=== PATIENT | male | born 1965 | race Caucasian/White ===

== ENCOUNTER 2018-09-06 13:28 | Outpatient (CLI) | payer OTHER ==
--- NOTE | 2018-09-06 16:11 | RAD ---
THREE VIEWS OF THE LUMBOSACRAL SPINE: COMPARISON: 05/31/2018. HISTORY: Low back pain for years. FINDINGS: Lateral views of the lumbosacral spine were performed in neutral, flexion, and extension. The verteb ral bodies demonstrate normal height without fracture or subluxation. The intervertebral disks are n arrowed at L4-5 and L5-S1. Alignment is unchanged with flexion and extension. Small osteophytes are seen throughout the lumbar spine. IMPRESSION: Degenerative changes of the lumbar spine with unchanged alignment with bending. POS: PRETTY
--- NOTE | 2018-09-06 17:40 | MRI ---
MRI LUMBAR SPINE WITHOUT CONTRAST: Date: 09/06/18 HISTORY: M54.16 lumbar radiculopathy. COMPARISON: Radiograph same date. FINDINGS: No hydronephrosis. Aortic contour is nonaneurysmal. No retroperitoneal adenopathy. Symmetric bilatera l paraspinal muscle bulk. No marrow infiltrative process. Modic Type I end plate changes L4-5 and L5-S1. There is a superior en d plate Schmorl's node at L4-5. Conus medullaris terminates near the mid L1 vertebral body. No marrow infiltrative process. No hydronephrosis. Aortic contour is normal. Levels are as follows: L1-2: Normal disc. Mild facet arthrosis. No neural foraminal or spinal canal narrowing. L2-3: There is moderate disc desiccation and circumferential disc bulge. Superimposed central annula r fissure. Bilateral subforaminal posterior disc osteophyte complexes cause mild neural foraminal saida rowing. Spinal canal is not significantly narrowed. L3-4: Broad based posterior disc osteophyte complex. Moderate hypertrophic facet changes. There is m oderate bilateral neural foraminal narrowing with abutment of the left exiting and traversing nerve r oot. Spinal canal measures approximately 1.0 cm. L4-5: There is severe hypertrophic facet arthropathy. Marked ligamentum flavum hypertrophy. Broad ba sed posterior disc osteophyte complex. Moderate to severe left and moderate to severe right neural fo raminal narrowing with abutment of the left exiting nerve root and right exiting nerve root. There is also right paracentral annular fissure. L5-S1: Severe degenerative disc space height loss. Broad based disc osteophyte complex. Severe facet arthrosis. There is moderate to severe bilateral neural foraminal narrowing with abutment of both ex iting nerve roots and the right traversing nerve root. IMPRESSION: Multilevel spondylosis as described above with multilevel neural foraminal narrowing and nerve root a butment. POS: TPC
== END 2018-09-06 13:29 | disposition home or self-care (01) ==
LOC: SCSMRI 13:28
PROVIDERS: ATTEND Neurological Surgery
DX: M47.26 Other spondylosis with radiculopathy, lumbar region (principal); M54.5 Low back pain; M48.061 Spinal stenosis, lumbar region without neurogenic claudication
CPT/HCPCS: 72100; 72148

== ENCOUNTER 2018-09-25 14:11 | Outpatient (CLI) | payer OTHER ==
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
== END 2018-09-25 14:12 | disposition home or self-care (01) ==
LOC: SCSCT 14:11
PROVIDERS: ATTEND Neurological Surgery
DX: M43.16 Spondylolisthesis, lumbar region (principal)
CPT/HCPCS: 72131

== ENCOUNTER 2019-04-23 15:52 | Outpatient (CLI) | payer OTHER | END 2019-04-23 15:53 | disposition home or self-care (01) | LOC: CTENTCT 15:52 | PROVIDERS: ATTEND Specialist | DX: R43.1 Parosmia (principal) | CPT/HCPCS: 70486 ==

== ENCOUNTER 2019-08-01 06:35 | Outpatient (CLI) | payer OTHER ==
[2019-08-01 11:13] LABS: Hemoglobin 14.5 g/dL (14.0-18.0); Mean Corpuscular Hemoglobin 27.2 pg (27.0-31.0); Mean Corpuscular Volume 82.3 fL (78.0-98.0); Mean Platelet Volume 7.6 fL (7.4-10.4); Platelet Count 247 thou/uL (130-400); RBC Distribution Width 12.2 % (11.5-14.5); Red Blood Cell (RBC) Count 5.33 mill/uL (4.70-6.10); White Blood Cell (WBC) Count 7.4 thou/uL (4.8-10.8)
[2019-08-01 11:19] LABS: INR-International Normal Ratio 0.9; PTT 35.9 SEC (22.9-36.1); Prothrombin Time 12.6 SEC (12.0-14.7)
== END 2019-08-01 06:36 | disposition home or self-care (01) ==
LOC: LABBT 06:35
PROVIDERS: ATTEND Neurological Surgery
DX: Z01.812 Encounter for preprocedural laboratory examination (principal); M43.16 Spondylolisthesis, lumbar region
CPT/HCPCS: 85027; 85610; 85730

== ENCOUNTER 2019-08-01 09:00 | Inpatient (IN) | payer OTHER ==
[2019-08-01 09:34] VITALS: BMI 28.3
[2019-08-23] MEDS ORDERED: Bupivacaine PF 0.5% 30 ML VIAL ONE (06:12)
[2019-08-23] MEDS ORDERED: Thrombin 5000 UNITS/5 ML VIAL ONE (06:12)
[2019-08-23] MEDS ORDERED: Fentanyl 100 MCG/2 ML VIAL ONE ×6 (06:53→13:09)
[2019-08-23] MEDS ORDERED: HYDROmorphone 2 MG/ML VIAL SLOW IVP PRN (07:31)
[2019-08-23] MEDS ORDERED: Meperidine HCl/PF 25 MG/ML VIAL SLOW IVP PRN (07:31)
[2019-08-23] MEDS ORDERED: Promethazine HCl 25 MG/ML VIAL SLOW IVP PRN (07:31)
[2019-08-23] MEDS ORDERED: Ondansetron HCl/PF 4 MG/2 ML Vial IVP PRN (07:31)
[2019-08-23] MEDS ORDERED: Rocuronium Bromide 50 MG/5 ML VIAL ONE ×2 (08:34→10:27)
[2019-08-23] MEDS ORDERED: Dexamethasone 20 MG/5 ML VIAL ONE (10:11)
[2019-08-23] MEDS ORDERED: ePHEDrine/0.9% NaCl/PF SYRINGE 50 mg/10 ml ONE (10:11)
[2019-08-23] MEDS ORDERED: Lidocaine 1% PF 5 ML VIAL ONE (10:11)
[2019-08-23] MEDS ORDERED: PROPOFOL 200 MG/20 ML VIAL ONE (10:11)
[2019-08-23] MEDS ORDERED: Ketorolac Tromethamine 30 MG/ML VIAL ONE (10:11)
[2019-08-23] MEDS ORDERED: Ondansetron PF 4 MG/2 ML Vial ONE (10:11)
[2019-08-23] MEDS ORDERED: Rocuronium Bromide 10 MG/ML (10ML VIAL) ONE (10:11)
[2019-08-23] MEDS ORDERED: SUGAMMADEX SODIUM 500 MG/5 ML VIAL ONE (11:11)
[2019-08-23] MEDS ORDERED: diphenhydrAMINE 25 MG CAP PO PRN (11:36)
[2019-08-23] MEDS ORDERED: Promethazine HCl 25 MG/ML VIAL IM PRN (11:36)
[2019-08-23] MEDS ORDERED: Acetaminophen/Codeine 30-300mg Tablet PO PRN ×2 (11:36)
[2019-08-23] MEDS ORDERED: tiZANidine HCl 4 MG TAB PO PRN (11:36)
[2019-08-23] MEDS ORDERED: Promethazine HCl 12.5 MG SUPP PR PRN (11:36)
[2019-08-23] MEDS ORDERED: Bisacodyl 10 MG SUPP PR PRN (11:36)
[2019-08-23] MEDS ORDERED: Acetaminophen 650 MG Suppository PR PRN (11:36)
[2019-08-23] MEDS ORDERED: Promethazine 25 MG TAB PO PRN (11:36)
[2019-08-23] MEDS ORDERED: HYDROcodone/Acetaminophen 10/325 mg Tablet PO PRN (11:36)
[2019-08-23] MEDS ORDERED: Milk Of Magnesia 30 ML UDCUP PO PRN (11:36)
[2019-08-23] MEDS ORDERED: Morphine 2 MG/ML SYRINGE SLOW IVP PRN (11:36)
[2019-08-23] MEDS ORDERED: Mag-Al 1200 mg/1200 mg/30 ML UDCUP PO PRN (11:36)
[2019-08-23] MEDS ORDERED: Ondansetron PF 4 MG/2 ML Vial IVP PRN (11:36)
[2019-08-23] MEDS ORDERED: diphenhydrAMINE 50 MG/ML VIAL IVP PRN (11:36)
[2019-08-23] MEDS ORDERED: Morphine 4 MG/ML VIAL SLOW IVP PRN (11:36)
[2019-08-23] MEDS ORDERED: Acetaminophen 325 MG TAB PO PRN (11:36)
[2019-08-23] MEDS ORDERED: Azelastine 137 MCG/Spray 30 ML NS PRN (11:37)
[2019-08-23] MEDS ORDERED: HYDROmorphone 2 MG/ML VIAL ONE (11:38)
[2019-08-23] MEDS ORDERED: Scopolamine 1.5 mg/72 hour Patch TD SCH (11:45)
[2019-08-23] MEDS ORDERED: Promethazine HCl 25 MG/ML VIAL ONE (11:49)
[2019-08-23] MEDS ORDERED: Tamsulosin HCl 0.4 MG CAP ONE (12:05)
--- NOTE | 2019-08-23 13:36 | OP ---
DATE OF PROCEDURE: 08/23/2019 [employer] ARCHITECT: Thuan Terry PA-C PREOPERATIVE INDICATION: Treat pain and prevent neurological deterioration. PREOPERATIVE DIAGNOSES: Painful bilateral L5 pars fractures and spondylolisthesis, lateral recess stenosis at L4-L5, right greater than left L5 radiculopathy. POSTOPERATIVE DIAGNOSES: Painful bilateral L5 pars fractures and spondylolisthesis, lateral recess stenosis at L4-L5, right greater than left L5 radiculopathy. PROCEDURES PERFORMED: Decompressive laminectomy with medial facetectomy and foraminotomy at L4-L5 and L5-S1, complete facetectomy at L5-S1 on the right, transforaminal lumbar interbody arthrodesis L5-S1, placement of intervertebral biomechanical device L5-S1, pedicle screw and boston instrumentation L5-S1, posterolateral arthrodesis L5-S1, local morselized autograft and morselized allograft. PREOPERATIVE MEDICATION: Ancef 2 g IV. DRAIN NUMBER: Zero. DRAIN TYPE: None. DESCRIPTION OF PROCEDURE: The patient was brought to the operating room. General endotracheal anesthesia was induced. The patient was carefully positioned prone on the Luis Antonio frame with the appropriate padding for the chest and hips. A lateral fluoro radiograph was used to plan our incision. The lumbar skin was sterilely prepped and draped. We opened with a 10 blade knife and we controlled bleeding with bipolar and monopolar cautery. We used monopolar cautery to dissect through subcutaneous tissues to the thoracodorsal fascia. We incised the fascia in midline and reflected the paraspinal muscles off the spinous process and lamina of L4, L5, and S1. A self-retaining retractor was placed. A lateral fluoro radiograph confirmed the levels upon which we were operating. We removed the L4-L5 and superior sacral spinous process with Adson rongeur. Using Kerrison rongeurs, we fashioned a laminectomy from the bottom of L5 to the top of L4. We widened our laminectomy defect until we were lateral to the dura. We had to perform medial facetectomies at the lateral recesses at L4-L5 and L5-S1 from overgrown facet joints crowding the lateral recesses. We ensured that after foraminotomies, a Saucedo ball probe could pass out the foramen with L4, L5, and S1 nerve roots bilaterally. The L5 nerve roots bilaterally were compressed due to vertical compression between the pedicle of L5 and the top of the sacrum. This was due to loss of disk space at the lumbosacral interspace. This necessitated decompression of the nerve roots that was more aggressive and a wide foraminotomy over each of them. Medial facetectomies were performed as well and we ensured the L5 nerve roots were also decompressed in the lateral recess. We irrigated copiously with bacitracin irrigation and we turned our attention to arthrodesis. We performed a complete facetectomy of L5-S1 on the left side and with the bone out of the way, we could access the intervertebral space through the foramen. Very little retraction was needed. We emptied disk contents from the intervertebral space with curettes and rongeurs. We then brought a bone rasp into the field. We measured the height of the interspace to only 7 mm. A 7-mm PEEK intervertebral graft was brought into the field. Laminectomy bone was cleaned of soft tissue attachments, morcellized and added to demineralized bone matrix as our fusion substrate. The substrate was packed into the center of the PEEK graft and the graft was advanced into the interspace under radiographic guidance to the appropriate depth. We turned our attention to pedicle screw instrumentation. Using bony anatomic landmarks, palpation of the medial portion of the pedicles, and a lateral fluoro radiograph as our guide, we chose entry points for pedicle screws at L5 and S1 bilaterally. We used a bone awl to create trajectories through the pedicles into the vertebral bodies. We then tapped the trajectories. We placed 6.5 mm diameter screws through the pedicles into the vertebral bodies and then checked positioning with an image set generated with our isocentric C-arm. This 360-degree image set generated images confirming adequate positioning of our pedicle screw instrumentation. We irrigated with bacitracin irrigation. We dropped rods into the screw heads and we tightened caps over the rods. Before final tightening, we applied gentle compression across the interspace to keep the interbody graft in place and maintain lordosis. We tightened the caps down using a torque/counter-torque mechanism. This also necessitated widening of foraminotomies on both sides to ensure the L5 nerve roots were decompressed. We kept widening a foraminotomy until a Saucedo ball probe could easily pass through the lateral recess and out the foramen at the L4-L5 interspace and out the L5-S1 foramen. We irrigated with bacitracin irrigation. We then irrigated copiously in the posterolateral recesses. We decorticated the sacral ala and the transverse process of L5 bilaterally and over the decorticated bone, we left demineralized bone matrix and morselized autograft as our posterolateral fusion substrate. We irrigated the center of the wound once again. We treated it with vancomycin powder and we closed the wound in anatomical layers and applied a sterile dressing. This was a clean case, no contamination. Job ID: [id number]
--- NOTE | 2019-08-23 13:52 | HP ---
REASON FOR ADMISSION: "I'm here for my back surgery." HISTORY OF PRESENT ILLNESS: Antoine Chaparro is a patient from our [facility]surgery [facility], who was originally seen early in July 2018. He has some chronic and progressive back pain that flared up from [id number], especially when he was engaged in heavy physical activity like mountain biking. He was helped some by physical therapy before meeting us. Traction seemed to make it worse. He did not have injections, but subsequently underwent injections into his bilateral L5 pars defects, which were 100% effective, but were temporary. Mr. Chaparro repeated those injections. He tried more physical therapy. He lost weight. He has been physically active. He has strength in his core muscles, but he still has pain mostly in the axial low back, but also radiating down the thigh of the right leg and some past the knee in the L5 distribution. Because of the refractory nature of the pain, it is worsening over time, and failure of nonsurgical therapy to alleviate it. We offered him a surgical intervention. We discussed in the office, decompressing the L4-L5 interspace in the lateral recesses as well as generating more room in the L5 foramina bilaterally and mobilizing the pars defects with a decompression fusion at L5-S1. He agreed and he is here to have that operation. PAST MEDICAL HISTORY: Type 2 diabetes, hyperlipidemia, arthritis, hernia, and history of kidney stones. PAST SURGICAL HISTORY: Kidney stones, cyst removal from , colonoscopy. Other hospitalizations: Episode of food poisoning in 2004. MEDICATIONS: Admission medications are; 1. Ibuprofen. 2. Metformin. 3. Atorvastatin. 4. Azelastine. ALLERGIES: DUST. NO KNOWN DRUG ALLERGIES. SOCIAL HISTORY: Mr. Chaparro is a nonsmoker. He does not use alcohol or drugs. He has a single sexual partner. He is an electrical software engineer. He is . He has children. He has coffee and other caffeine each day. FAMILY HISTORY: The patient's family history is positive for diabetes, breast cancer in his mother. The children are alive and healthy. He had a maternal grandfather with diabetes. He has no known family history of bleeding diathesis or anesthesia complications. REVIEW OF SYSTEMS: Otherwise, negative. PHYSICAL EXAMINATION: NEUROLOGIC: Mr. Chaparro is awake. He is alert. His speech is fluent. There is no dysarthria. There is no dysphasia. His cranial nerves are intact. His gait is normal. There is normal strength in the iliopsoas, quadriceps, the hamstrings, the anterior tib, the EHL, the gastroc, and the toe flexors. He has a mildly positive straight leg raise on the right. His knee reflexes and ankle jerks are normal. The toes are downgoing. There is no Babinski. IMAGING FINDINGS: MR imaging shows some lateral recess stenosis, especially on the left side of the canal at L4-L5 and over the L5 nerve roots. There is foraminal stenosis at L5-S1. There is a spondylolisthesis at L5-S1 and CT and x-ray imaging show pars defects at L5. IMPRESSION: 1. Pars fractures. 2. Spondylolisthesis at L5-S1. 3. Chronic pain. 4. Lateral recess stenosis. 5. Foraminal disease. 6. Right L5 radiculopathy. PLAN: Mr. Chaparro would be taken to the operating room for decompression of the L5 nerve roots, both in the lateral recesses at L4-L5 and in both foramina at L5-S1. ASSESSMENT AND PLAN: He will also have a fusion at L5-S1 to mobilize the pars defect and eliminate pain generated from those. Informed consent: We went over informed consent in the office and he expressed his understanding. We discussed indications, risks, benefits, alternatives, and expected outcomes from surgery. The risks we discussed included, but were not limited to, bleeding, infection, CSF leak, nerve damage, cauda equina injury, paralysis, coma, wheelchair dependence, cardiopulmonary complications of anesthesia, major vascular injury, and . Future risks include instrument failure and need for future surgery. He understands the risks and wants to proceed. Job ID: [id number]
[2019-08-23] MEDS ORDERED: CEFAZOLIN 2 GM in Premix Bag 1 BAG IVPB SCH (14:00)
[2019-08-23] MEDS: HYDROcodone/Acetaminophen 10/325 mg Tablet PO PRN ×3 (15:36→23:58)
[2019-08-23] MEDS: Sodium Chloride 0.9% 1,000 ML IV SCH (15:45)
[2019-08-23] MEDS: CEFAZOLIN 2 GM in Premix Bag 1 BAG IVPB SCH ×2 (15:45→23:59)
[2019-08-23] MEDS ORDERED: metFORMIN 500 MG TAB PO SCH (17:00)
[2019-08-24] MEDS: Sodium Chloride 0.9% 1,000 ML IV SCH ×2 (02:06→13:48)
[2019-08-24] MEDS: HYDROcodone/Acetaminophen 10/325 mg Tablet PO PRN (04:24)
[2019-08-24] MEDS ORDERED: Tamsulosin HCl 0.4 MG CAP PO SCH (06:00)
--- NOTE | 2019-08-24 08:16 | PRG ---
DATE OF SERVICE: 08/24/2019 Mr. Chaparro is postop day one with Dr. Mayer for lumbar TLIF. He is actually doing quite well. He has ambulated in his room. His pain level was well controlled. He has not yet gotten up in the hallways. We did discuss potential discharge today if he feels comfortable with that. I would like to see him ambulate in the hallways. We will call back up this afternoon and likely get him out, home with followup in the outpatient setting. Job ID: [id number]
[2019-08-24 12:10] VITALS: BP 107/61; TEMP 98.4
[2019-08-24] MEDS ORDERED: Atorvastatin Calcium 20 MG TAB PO SCH (21:00)
== END 2019-08-24 15:51 | disposition home or self-care (01) | DRG 455 ==
LOC: SURG A 08-23 05:55 → SJJU 08-23 14:25
PROVIDERS: ADMIT Neurological Surgery; ATTEND Neurological Surgery
PROC: 0SG30AJ Fusion of Lumbosacral Joint with Interbody Fusion Device, Posterior Approach, Anterior Column, Open Approach (ICD-10-PCS; principal; 2019-08-23)
PROC: 0SG3071 Fusion of Lumbosacral Joint with Autologous Tissue Substitute, Posterior Approach, Posterior Column, Open Approach (ICD-10-PCS; 2019-08-23)
PROC: 0SB40ZZ Excision of Lumbosacral Disc, Open Approach (ICD-10-PCS; 2019-08-23)
PROC: 01NB0ZZ Release Lumbar Nerve, Open Approach (ICD-10-PCS; 2019-08-23)
PROC: 01NR0ZZ Release Sacral Nerve, Open Approach (ICD-10-PCS; 2019-08-23)
DX: M43.17 Spondylolisthesis, lumbosacral region (principal); M48.061 Spinal stenosis, lumbar region without neurogenic claudication; M54.16 Radiculopathy, lumbar region; E11.9 Type 2 diabetes mellitus without complications; E78.5 Hyperlipidemia, unspecified; M19.90 Unspecified osteoarthritis, unspecified site; G89.29 Other chronic pain; M54.17 Radiculopathy, lumbosacral region; Z87.442 Personal history of urinary calculi; Z79.899 Other long term (current) drug therapy; Z79.84 Long term (current) use of oral hypoglycemic drugs; Z91.09 Other allergy status, other than to drugs and biological substances
CPT/HCPCS: 36416; 76000; C1713; C1768; J0690; J1100; J1170; J1885; J2001; J2405; J2550; J2704; J3010; J3370; J3490; S0020

== ENCOUNTER 2020-06-02 09:16 | Outpatient (CLI) | payer OTHER ==
--- NOTE | 2020-06-02 09:48 | RAD ---
EXAM: Lumbar spine 4 views including flexion and extension lateral views HISTORY: Lumbar spondylolisthesis, postoperative change. COMPARISON: 09/06/2018 FINDINGS: Postoperative laminectomy and pedicle screw fixation changes and intradiscal prosthesis at L5-S1. No evidence for acute fracture or dislocation or significant acute process. Mild levoscoliosis. No significant anterolisthesis or abnormal translation between flexion and extension. Marked narrowing of multiple disks. No evidence for a focal bone lesion. IMPRESSION: Postop changes at L5-S1 as above.
== END 2020-06-02 09:17 | disposition home or self-care (01) ==
LOC: SCSRAD 09:16
PROVIDERS: ATTEND Neurological Surgery
DX: M43.16 Spondylolisthesis, lumbar region (principal); Z98.890 Other specified postprocedural states
CPT/HCPCS: 72110

== ENCOUNTER 2021-03-19 16:35 | Emergency (ER) | payer OTHER | END 2021-03-19 18:51 | disposition home or self-care (01) | LOC: ERS 16:35 | DX: S27.301A Unspecified injury of lung, unilateral, initial encounter (principal); E11.9 Type 2 diabetes mellitus without complications; Z79.84 Long term (current) use of oral hypoglycemic drugs; W22.8XXA Striking against or struck by other objects, initial encounter ==

== ENCOUNTER 2021-05-18 12:54 | Outpatient (CLI) | payer OTHER ==
[~2021-05-18 12:54] MED LIST: Iopamidol 370 76% 100 ML VIAL ONE
== END 2021-05-18 12:55 | disposition home or self-care (01) ==
LOC: CT 12:54
PROVIDERS: ATTEND Thoracic Surgery (Cardiothoracic Vascular Surgery)
DX: J93.9 Pneumothorax, unspecified (principal); R91.8 Other nonspecific abnormal finding of lung field
CPT/HCPCS: 71260; Q9967